=== PATIENT | male | born 2000 | race Caucasian/White ===

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

== ENCOUNTER 2025-07-22 02:21 | Inpatient (IN) | payer BC, OTHER ==
[2025-07-22 03:59] LABS: #Basophils 0.04 10x3/uL (0.0-0.2); #Eosinophils 0.10 10x3/uL (0.0-0.7); #Monocytes 0.76 10x3/uL (0.11-0.59); #Neutrophils 4.07 10x3/uL (1.40-6.50); %Basophils 0.5 % (0.0-1.0); %Eosinophils 1.2 % (0.0-10.0); %Lymphocytes 38.9 % (21.0-51.0); %Monocytes 9.3 % (0.0-10.0); %Neutrophils 49.7 % (42.0-75.0); Hematocrit 35.7 % (42.0-52.0); Hemoglobin 12.0 g/dL (14.0-18.0); Mean Corpuscular Hemoglobin 29.8 pg (27.0-31.0); Mean Corpuscular Volume 88.6 fL (78.0-98.0); Platelet Count 224 10x3/uL (130-400); Red Blood Cell (RBC) Count 4.03 mill/uL (4.70-6.10); White Blood Cell (WBC) Count 8.19 10x3/uL (4.8-10.8)
[2025-07-22 04:15] LABS: INR-International Normal Ratio 1.0; PTT 29.4 sec (22.9-36.1); Prothrombin Time 13.5 sec (12.0-14.7)
[2025-07-22 04:22] LABS: Bacteria/HPF None Seen HPF (None Seen); CAUTI Indications for Culture Alt mental st,lethar; Glucose, Urine (Dipstick) Normal (Negative); Leukocyte Negative Leu/uL (Negative); Protein, Urine (Dipstick) Negative (Neg-Trace); RBC/HPF None Seen HPF (0-3); Specific Gravity, Urine 1.017 (1.002-1.036); WBC/HPF 0-3 HPF (0-3)
[2025-07-22 04:28] LABS: Urine Culture Reflex No No
[2025-07-22 04:30] LABS: Acetaminophen Less than 10 mcg/mL (Less than 10); Salicylate Less than 8.0 mg/dL (Less than 8.0)
[2025-07-22 04:32] LABS: ALT (SGPT) 24 U/L (Less than 45); AST (SGOT) 35 U/L (11-34); Albumin 3.9 g/dL (3.1-4.5); Alkaline Phosphatase 58 U/L (40-110); Anion Gap 14 mmol/L (10-20); BUN (Urea Nitrogen) 12 mg/dL (8.9-20.6); Bilirubin, Total 0.6 mg/dL (0.3-1.2); Calc. Creatinine Clearance 0 mL/min (70-130); Calcium 8.6 mg/dL (7.8-10.44); Carbon Dioxide 22 mmol/L (22-29); Chloride 104 mmol/L (98-107); Globulin 2.4 g/dL (2.4-3.5); Glucose 100 mg/dL (70-105); Potassium 3.0 mmol/L (3.5-5.1); Sodium 137 mmol/L (136-145)
[2025-07-22 04:32] LABS: Cocaine Metabolite Screen Negative (Negative); THC/Cannabinoid Screen PRELIM POSITIVE (Negative); Tricyclic Screen Negative (Negative)
[2025-07-22] MEDS ORDERED: hydrALAZINE 20 MG/ML VIAL SLOW IVP PRN (04:58)
[2025-07-22] MEDS ORDERED: PHOS-NAK 1 PKT PACK PO PRN (05:15)
[2025-07-22] MEDS ORDERED: Electrolyte Replacement Protocol 1 EACH FS SCH (05:15)
[2025-07-22] MEDS ORDERED: Magnesium Sulfate In Water 4 GM in Premix 1 BAG IVPB PRN (05:15)
[2025-07-22] MEDS: Famotidine/PF 20 mg/2ml Vial SLOW IVP SCH (08:51)
[2025-07-22] MEDS: Potassium Chloride 20 MEQ in Premix 1 BAG IVPB PRN (08:51)
[2025-07-22] MEDS ORDERED: Iopamidol 370 76% 100 ML VIAL ONE (09:39)
[2025-07-22] MEDS ORDERED: Iopamidol-370 76% 500 ML MDV (1 ML CHARGE) ONE (09:58)
[2025-07-22 12:06] VITALS: BMI 20.9
[2025-07-22] MEDS: FLU (Fluarix Triv) 25-26 (6MOS UP)/PF 45 MCG/0.5 ML Syringe IM ONE (13:44)
[2025-07-22] MEDS ORDERED: Acetaminophen/Codeine 30-300mg Tablet PO PRN (15:42)
[2025-07-22] MEDS ORDERED: Prochlorperazine 10 MG/2 ML VIAL SLOW IVP PRN (15:42)
[2025-07-22] MEDS: Ondansetron PF 4 MG/2 ML Vial IVP PRN (16:32)
[2025-07-22] MEDS: Acetaminophen 325 MG TAB PO PRN (17:51)
[2025-07-22] MEDS: BIKTARVY 50-200-25 MG TABLET PO SCH (21:03)
[2025-07-23 06:44] LABS: #Basophils 0.03 10x3/uL (0.0-0.2); #Eosinophils 0.03 10x3/uL (0.0-0.7); #Monocytes 1.28 10x3/uL (0.11-0.59); #Neutrophils 11.37 10x3/uL (1.40-6.50); %Basophils 0.2 % (0.0-1.0); %Eosinophils 0.2 % (0.0-10.0); %Lymphocytes 13.1 % (21.0-51.0); %Monocytes 8.7 % (0.0-10.0); %Neutrophils 77.3 % (42.0-75.0); Hematocrit 38.3 % (42.0-52.0); Hemoglobin 12.6 g/dL (14.0-18.0); Mean Corpuscular Hemoglobin 29.9 pg (27.0-31.0); Mean Corpuscular Volume 91.0 fL (78.0-98.0); Platelet Count 198 10x3/uL (130-400); Red Blood Cell (RBC) Count 4.21 mill/uL (4.70-6.10); White Blood Cell (WBC) Count 14.72 10x3/uL (4.8-10.8)
[2025-07-23 07:04] LABS: Anion Gap 11 mmol/L (10-20); BUN (Urea Nitrogen) 13 mg/dL (8.9-20.6); Calc. Creatinine Clearance 106 mL/min (70-130); Calcium 9.6 mg/dL (7.8-10.44); Carbon Dioxide 26 mmol/L (22-29); Chloride 108 mmol/L (98-107); Glucose 102 mg/dL (70-105); Potassium 4.1 mmol/L (3.5-5.1); Sodium 141 mmol/L (136-145)
[2025-07-23] MEDS: Mupirocin 1 GM TUBE NASAL DECOLONIZATION TP SCH (12:00)
[2025-07-23 15:56] VITALS: BP 115/67
[2025-07-23 16:48] VITALS: TEMP 97.8
[2025-07-23] MEDS ORDERED: Mupirocin 1 GM TUBE NASAL DECOLONIZATION NASAL SCH (21:00)
== END 2025-07-23 18:30 | disposition home or self-care (01) | DRG 84 ==
LOC: ERS 02:21 → IMCU/EMU 05:01 → OBSVTOIN 07-23 09:57
PROVIDERS: ADMIT Colon & Rectal Surgery; ATTEND Colon & Rectal Surgery
DX: S06.6X9A Traumatic subarachnoid hemorrhage with loss of consciousness of unspecified duration, initial encounter (principal); E87.6 Hypokalemia; S02.19XA Other fracture of base of skull, initial encounter for closed fracture; R40.2352 Coma scale, best motor response, localizes pain, at arrival to emergency department; R40.2142 Coma scale, eyes open, spontaneous, at arrival to emergency department; R40.2242 Coma scale, best verbal response, confused conversation, at arrival to emergency department; F10.10 Alcohol abuse, uncomplicated; Y09 Assault by unspecified means
CPT/HCPCS: 36415; 70450; 70486; 70496; 70498; 72125; 80048; 80053; 80306; 80307; 81001; 85025; 85610; 85730; 86850; 86900; 86901; 93005; 96375; 96376; G0378; G0390; J1308; J2060; J2405; J3480; Q9967